=== PATIENT | male | born 1985 | race Caucasian/White ===

== ENCOUNTER 2020-05-25 14:39 | Emergency (ER) | payer BC ==
[~2020-05-25] VITALS: Ht 177.8 cm; Wt 88.5 kg
--- NOTE | 2020-05-25 15:05 | NUR ---
BIB SELF C/O LOWER BACK PAIN X 2 DAYS. DENIES RECENT INJURY. VS CHECKED. SEEN BY
[2020-05-25] MEDS ORDERED: KETOROLAC TROMETHAMINE INJ 30 MG/ML VIAL ONE (15:14)
[2020-05-25] MEDS ORDERED: CYCLOBENZAPRINE 10 MG TABLET ONE (15:14)
--- NOTE | 2020-05-25 15:24 | NUR ---
BACK FROM CT
[2020-05-25] MEDS ORDERED: CYCLOBENZAPRINE 10 MG TABLET PO ONE (15:30)
[2020-05-25] MEDS ORDERED: LIDOCAINE 5% (PATCH) 1 EA PATCH TP SCH (15:30)
[2020-05-25] MEDS ORDERED: KETOROLAC TROMETHAMINE INJ 30 MG/ML VIAL IM ONE (15:30)
--- NOTE | 2020-05-25 16:29 | NUR ---
Patient discharged to home in stable condition. Written and verbal after care instructions given. Patient verbalizes understanding of instruction.
[2020-05-25 16:30] VITALS: BP 142/81
== END 2020-05-25 16:31 | disposition home or self-care (01) ==
LOC: ER 14:39
DX: M51.26 Other intervertebral disc displacement, lumbar region (principal)
CPT/HCPCS: 72131; 96372; 99284; J1885